=== PATIENT | female | born 1985 | race Caucasian/White ===

== ENCOUNTER 2019-04-09 10:35 | Emergency (ER) | payer MEDICAID ==
[2019-04-09] MEDS ORDERED: FAMOTIDINE INJ/PF 20 MG/2 ML SDV IV ONE (11:04)
[2019-04-09] MEDS ORDERED: ONDANSETRON HCL INJ/PF 4 MG/2 ML SDV IV ONE (11:04)
[2019-04-09] MEDS ORDERED: NORMAL SALINE 1000 ML 1,000 ML IV ONE (11:04)
--- NOTE | 2019-04-09 11:05 | ER Document Report ---
ED Medical Screen (RME) - General Chief Complaint: Vaginal Bleeding Stated Complaint: VOMITING Time Seen by Provider: 04/09/19 10:59 Primary Care Provider: PAUL ZAMUDIO MD [Primary Care Provider] - Follow up as needed TRAVEL OUTSIDE OF THE [place] IN LAST 30 DAYS: No - HPI Notes: 04/09/19 11:05 33-year-old female to the emergency department with complaints of nausea and vomiting for the past 2 weeks that has gotten acutely worse. She states that she vomits somewhere around 3 times every day. She notices that the vomiting and nausea gets worse after she eats. She denies any upper abdominal pain but does admit to some lower abdominal pain. She states that she has had some of this trouble since she started the NuvaRing. She took hernia last NuvaRing out 4 days ago but still her symptoms have persisted. She also states that she has been having vaginal bleeding since March 14. She states that sometimes it is very heavy and sometimes is light. She denies any fevers, chills, chest pain, passing out. She does admit to some lightheadedness and weakness. She also reports a chronic cough for several months now. Sometimes when she is coughing she feels short of breath. She denies any flank pain, burning with urination, vaginal discharge. She is a smoker. She states that she drinks 1-2 bottles of wine a week. She denies any illicit drug use. Performed a medical screening exam on this patient. I have placed initial orders to help augment to her care today. While the main side provider further evaluate and manage patient. On exam patient has a nontender soft abdomen. She has negative McBurney's point, negative Rovsing's, negative Pereira sign, no CVA tenderness bilaterally, and no evidence of peritoneal signs. She has a slight cough. Her chest is clear to auscultation. - Related Data Allergies/Adverse Reactions: No Known Allergies Allergy (Verified 04/09/19 11:02) Physical Exam - Vital signs Vitals: Temp Pulse Resp BP Pulse Ox 98.5 F 102 H 14 112/72 98 04/09/19 10:40 04/09/19 10:40 04/09/19 10:40 04/09/19 10:40 04/09/19 10:40 Course - Vital Signs Vital signs: Temp Pulse Resp BP Pulse Ox 98.5 F 102 H 14 112/72 98 04/09/19 10:40 04/09/19 10:40 04/09/19 10:40 04/09/19 10:40 04/09/19 10:40 Doctor's Discharge - Discharge Referrals: PAUL ZAMUDIO MD [Primary Care Provider] - Follow up as needed
--- NOTE | 2019-04-09 11:36 | RADIOLOGY REPORT (SQ) ---
EXAM DESCRIPTION: CHEST 2 VIEWS COMPLETED DATE/TIME: 04/09/2019 11:28 am REASON FOR STUDY: chronic cough COMPARISON: None. EXAM PARAMETERS: NUMBER OF VIEWS: two views TECHNIQUE: Digital Frontal and Lateral radiographic views of the chest acquired. RADIATION DOSE: NA LIMITATIONS: none FINDINGS: LUNGS AND PLEURA: No opacities, masses or pneumothorax. No pleural effusion. MEDIASTINUM AND HILAR STRUCTURES: No masses or contour abnormalities. HEART AND VASCULAR STRUCTURES: Heart normal size. No evidence for failure. BONES: No acute findings. HARDWARE: None in the chest. OTHER: No other significant finding. IMPRESSION: NO ACUTE RADIOGRAPHIC FINDING IN THE CHEST. TECHNICAL DOCUMENTATION: JOB ID: [id number] [employer]- All Rights Reserved Reading location - IP/workstation name: [email or web address]
[2019-04-09 11:51] LABS: ABSOLUTE EOSINOPHILS # (AUTO) 0.1 10^3/uL (0.0-0.6); ABSOLUTE LYMPHOCYTES (AUTO) 0.9 10^3/uL (0.5-4.7); ABSOLUTE MONOCYTES (AUTO) 0.3 10^3/uL (0.1-1.4); ABSOLUTE NEUT (AUTO) 1.7 10^3/uL (1.7-8.2); APPEARANCE,URINE SLIGHTLY-CLOUDY; BASOPHILS % (AUTO) 1.4 % (0-2); BILIRUBIN,URINE SMALL (NEGATIVE); COLOR,URINE AMBER; EOSINOPHILS % (AUTO) 2.7 % (0-6); GLUCOSE, URINE NEGATIVE (NEGATIVE); HEMATOCRIT 38.8 % (36.0-47.0); HEMOGLOBIN 13.1 g/dL (12.0-15.5); KETONES,URINE NEGATIVE (NEGATIVE); LEUKOCYTE ESTERASE,URINE SMALL (NEGATIVE); LYMPHOCYTES % (AUTO) 28.8 % (13-45); MEAN CORPUSCULAR HEMOGLOBIN 32.5 pg (27.0-33.4); MEAN CORPUSCULAR HGB CONC 33.8 g/dL (32.0-36.0); MEAN CORPUSCULAR VOLUME 96 fl (80-97); MONOCYTES % (AUTO) 8.9 % (3-13); NITRITE,URINE POSITIVE (NEGATIVE); PLATELET COUNT 270 10^3/uL (150-450); PROTEIN,URINE 30 mg/dL (NEGATIVE); RED BLOOD COUNT 4.04 10^6/uL (3.72-5.28); RED CELL DISTRIBUTION WIDTH 12.8 % (11.5-14.0); SEGMENTED NEUTROPHILS % (AUTO) 58.2 % (42-78); TOTAL CELLS COUNTED % (AUTO) 100 %; URINE SPECIFIC GRAVITY 1.023
[2019-04-09 12:26] LABS: ALBUMIN 4.2 g/dL (3.5-5.0); ALKALINE PHOSPHATASE 85 U/L (38-126); ANION GAP 11 (5-19); ASPARTATE AMINO TRANSFERASE 427 U/L (14-36); BILIRUBIN,DIRECT 0.4 mg/dL (0.0-0.4); BILIRUBIN,TOTAL 1.1 mg/dL (0.2-1.3); BLOOD UREA NITROGEN 8 mg/dL (7-20); CALCIUM 9.4 mg/dL (8.4-10.2); CARBON DIOXIDE 27 mmol/L (22-30); CHLORIDE 100 mmol/L (98-107); GLUCOSE 131 mg/dL (75-110); POTASSIUM 4.2 mmol/L (3.6-5.0)
[2019-04-09] MEDS ORDERED: KETOROLAC TROMETHAMINE INJ/PF 30 MG/1 ML SDV IV ONE (12:45)
[2019-04-09] MEDS ORDERED: CEFTRIAXONE 1 GM/D5W RTU 1 GM/50 ML RTUPB IV ONE (12:45)
--- NOTE | 2019-04-09 12:47 | ER Document Report ---
ED GI/ - General Chief Complaint: Vaginal Bleeding Stated Complaint: VOMITING Time Seen by Provider: 04/09/19 10:59 Primary Care Provider: [facility] [Provider Group] - Follow up as needed [facility] [Provider Group] - Follow up as needed PAUL ZAMUDIO MD [NO LOCAL MD] - Follow up as needed Mode of Arrival: Ambulatory Information source: Patient Notes: Patient presents complaining of vaginal bleeding for the past 2 months. Patient states that she was recently started on the new for ring 4 months ago. Patient states that she had persistent bleeding for the past 2 months so she took the NuvaRing out 4 days ago. Patient complains of persistent bleeding since taking the NuvaRing out. Patient also reports a daily vomiting and has vomited 3 episodes today. Patient complains of lower pelvic cramping typical of menstrual cramps that she has had in the past. Patient denies any fever. Patient denies any urinary symptoms, vaginal discharge or concern about STD. TRAVEL OUTSIDE OF THE [place] IN LAST 30 DAYS: No - HPI Patient complains to provider of: Pelvic pain, Vaginal bleeding. No: , Vaginal discharge Onset: Other - 2 months Timing/Duration: Persistent Quality of pain: Cramping Pain Level: 1 Location: Pelvis Vaginal bleeding (Compared to normal period): [place] Menstrual period history: denies: Associated symptoms: Nausea, Vomiting. denies: Dysuria, Fever, Urinary hesitancy, Urinary frequency, Urinary retention, Vaginal discharge Exacerbated by: Denies Relieved by: Denies Similar symptoms previously: No Recently seen / treated by doctor: No - Related Data Allergies/Adverse Reactions: No Known Allergies Allergy (Verified 04/09/19 11:02) Past Medical History - General Information source: Patient - Social History Smoking Status: Current Every Day Smoker Smoking Education Provided: Yes Frequency of alcohol use: Heavy Drug Abuse: None Occupation: None Family History: Reviewed & Not Pertinent Patient has suicidal ideation: No Patient has homicidal ideation: No - Medical History Medical History: Negative Renal/ Medical History: Denies: Hx Peritoneal Dialysis Surgical Hx: Negative Review of Systems - Review of Systems Constitutional: No symptoms reported. denies: Fever, Recent illness EENT: No symptoms reported Cardiovascular: No symptoms reported. denies: Chest pain, Dizziness, Lightheaded Respiratory: No symptoms reported. denies: Cough, Short of breath Gastrointestinal: Abdominal pain, Nausea, Vomiting. denies: Diarrhea, Poor appetite Genitourinary: No symptoms reported. denies: Dysuria, Flank pain Female Genitourinary: Vaginal bleeding. denies: , Vaginal discharge Musculoskeletal: No symptoms reported. denies: Back pain Skin: No symptoms reported Hematologic/Lymphatic: No symptoms reported Neurological/Psychological: No symptoms reported Physical Exam - Vital signs Vitals: Temp Pulse Resp BP Pulse Ox 98.5 F 102 H 14 112/72 98 04/09/19 10:40 04/09/19 10:40 04/09/19 10:40 04/09/19 10:40 04/09/19 10:40 - General General appearance: Appears well, Alert In distress: None - HEENT Head: Normocephalic, Atraumatic Eyes: Normal Conjunctiva: Normal Nasal: Normal Mouth/Lips: Normal Mucous membranes: Normal Neck: Normal, Supple. No: Lymphadenopathy - Respiratory Respiratory status: No respiratory distress Chest status: Nontender Breath sounds: Normal. No: Rales, Rhonchi, Stridor, Wheezing Chest palpation: Normal - Cardiovascular Rhythm: Regular Heart sounds: S1 appreciated, S2 appreciated Murmur: No - Abdominal Inspection: Normal Distension: No distension Bowel sounds: Normal Tenderness: Tender - lower pelvic. No: McBurney's point, Pereira's sign, Guarding Organomegaly: No organomegaly - Genitourinary External exam: Normal Speculum exam: Cervix closed Vaginal bleeding: Mild Bimanuel exam: Normal. No: Cervical motion tender, Adnexal tenderness - Back Back: Normal, Nontender. No: CVA tenderness - Extremities General upper extremity: Normal inspection, Normal ROM General lower extremity: Normal inspection, Normal ROM - Neurological Neuro grossly intact: Yes Cognition: Normal Humberto Coma Scale Eye Opening: Spontaneous Humberto Coma Scale Verbal: Oriented Etters Coma Scale Motor: Obeys Commands Etters Coma Scale Total: 15 - Psychological Associated symptoms: Normal affect, Normal mood - Skin Skin Temperature: Warm Skin Moisture: Dry Skin Color: Normal Course - Re-evaluation Re-evalutation: 04/09/19 16:30 Patient advised of elevated AST. Patient does acknowledge drinking wine about 4 times a week. Patient encouraged to stop drinking wine and does not see a primary doctor to have her liver function test reevaluated. 04/09/19 18:10 Discussed results of patient's ultrasound reports with her. No concern for any biliary obstruction. Patient encouraged to get established with a primary doctor to recheck her liver function test. Patient also with UTI at this time. Abdomen is soft, no guarding. Patient presents with abdominal pain without signs of peritonitis or other life-threatening or serious etiology. Patient appears stable for discharge and has been instructed to return immediately if the symptoms worsen in any way for reevaluation. - Vital Signs Vital signs: Temp Pulse Resp BP Pulse Ox 98.2 F 69 14 113/68 100 04/09/19 18:17 04/09/19 18:17 04/09/19 10:40 04/09/19 18:17 04/09/19 18:17 - Laboratory Result Diagrams: 04/09/19 11:30 04/09/19 11:30 Laboratory results interpreted by me: 04/09/19 04/09/19 04/09/19 11:30 11:30 11:30 WBC 3.0 L Glucose 131 H AST 427 H Urine Protein 30 H Urine Nitrite POSITIVE H Urine Bilirubin SMALL H Urine Urobilinogen 2.0 H Ur Leukocyte Esterase SMALL H 04/09/19 17:54 Labs- Entire Visit 04/09/19 04/09/19 04/09/19 11:30 11:30 11:30 WBC 3.0 L RBC 4.04 Hgb 13.1 Hct 38.8 MCV 96 MCH 32.5 MCHC 33.8 RDW 12.8 Plt Count 270 Lymph % (Auto) 28.8 [place] % (Auto) 8.9 Eos % (Auto) 2.7 Baso % (Auto) 1.4 Absolute Neuts (auto) 1.7 Absolute Lymphs (auto) 0.9 Absolute Monos (auto) 0.3 Absolute Eos (auto) 0.1 Absolute Basos (auto) 0.0 Seg Neutrophils % 58.2 Sodium 138.0 Potassium 4.2 Chloride 100 Carbon Dioxide 27 Anion Gap 11 BUN 8 Creatinine 0.53 Est GFR ( Amer) > 60 Est GFR (MDRD) Non-Af > 60 Glucose 131 H Calcium 9.4 Total Bilirubin 1.1 Direct Bilirubin 0.4 Neonat Total Bilirubin Not Reportable Neonat Direct Bilirubin Not Reportable Neonat Indirect Bili Not Reportable AST 427 H ALT 78 Alkaline Phosphatase 85 Total Protein 7.0 Albumin 4.2 Lipase 82.8 Urine Color CODY Urine Appearance SLIGHTLY-CLOUDY Urine pH 5.0 Ur Specific [place] 1.023 Urine Protein 30 H Urine Glucose (UA) NEGATIVE Urine Ketones NEGATIVE Urine Blood NEGATIVE Urine Nitrite POSITIVE H Urine Bilirubin SMALL H Urine Urobilinogen 2.0 H Ur Leukocyte Esterase SMALL H Urine WBC (Auto) 32 Urine RBC (Auto) 2 Urine Bacteria (Auto) 1+ Squamous Epi Cells Auto 2 Urine Mucus (Auto) MANY Urine Ascorbic Acid NEGATIVE Urine HCG, Qual NEGATIVE Epi Cells (Wet Prep) Bacteria (Wet Prep) Trichomonas (Wet Prep) Vaginal WBC Vaginal RBC Vaginal Yeast Chlamydia DNA (PCR) N.gonorrhoeae DNA (PCR) 04/09/19 04/09/19 15:40 15:40 WBC RBC Hgb Hct MCV MCH MCHC RDW Plt Count Lymph % (Auto) [place] % (Auto) Eos % (Auto) Baso % (Auto) Absolute Neuts (auto) Absolute Lymphs (auto) Absolute Monos (auto) Absolute Eos (auto) Absolute Basos (auto) Seg Neutrophils % Sodium Potassium Chloride Carbon Dioxide Anion Gap BUN Creatinine Est GFR ( Amer) Est GFR (MDRD) Non-Af Glucose Calcium Total Bilirubin Direct Bilirubin Neonat Total Bilirubin Neonat Direct Bilirubin Neonat Indirect Bili AST ALT Alkaline Phosphatase Total Protein Albumin Lipase Urine Color Urine Appearance Urine pH Ur Specific [place] Urine Protein Urine Glucose (UA) Urine Ketones Urine Blood Urine Nitrite Urine Bilirubin Urine Urobilinogen Ur Leukocyte Esterase Urine WBC (Auto) Urine RBC (Auto) Urine Bacteria (Auto) Squamous Epi Cells Auto Urine Mucus (Auto) Urine Ascorbic Acid Urine HCG, Qual Epi Cells (Wet Prep) 3+ EPITHELIALS SEEN Bacteria (Wet Prep) 3+ BACTERIA SEEN Trichomonas (Wet Prep) NO TRICHOMONAS SEEN Vaginal WBC NO WBCS SEEN Vaginal RBC 2+ RBCS SEEN Vaginal Yeast NO YEAST SEEN Chlamydia DNA (PCR) NOT DETECTED N.gonorrhoeae DNA (PCR) NOT DETECTED - Diagnostic Test Radiology reviewed: Reports reviewed Discharge - Discharge Clinical Impression: Abnormal liver function test Nausea & vomiting Qualifiers: Vomiting type: unspecified Vomiting Intractability: non-intractable Qualified Code(s): R11.2 - Nausea with vomiting, unspecified UTI (urinary tract infection) Qualifiers: Urinary tract infection type: site unspecified Hematuria presence: without hematuria Qualified Code(s): N39.0 - Urinary tract infection, site not specified Ovarian cyst Qualifiers: Laterality: left Qualified Code(s): N83.202 - Unspecified ovarian cyst, left side Condition: Stable Disposition: HOME, SELF-CARE Instructions: Antinausea Medication ([facility]), Cephalexin ([facility]), Ovarian Cyst ([facility]), Urinary Tract Infection ([facility]), Vaginal Bleeding ([facility]), Vomiting ([facility]) Additional Instructions: Return immediately for any new or worsening symptoms Followup with your primary care provider, call tomorrow to make a followup appointment Stop drinking alcohol and avoid any heavy Tylenol or acetaminophen use. You should see a primary doctor to have your liver function tests reevaluated as your AST test was elevated today. Prescriptions: Cephalexin Monohydrate [Keflex 500 mg Capsule] 500 mg PO BID 5 Days capsule Naproxen [Naprosyn 250 Nmg Tablet] 1 tab PO BID #14 tablet Promethazine HCl [Phenergan 25 mg Tablet] 25 mg PO Q6H PRN #10 tablet PRN Reason: Forms: Smoking Cessation Education Referrals: PAUL ZAMUDIO MD [NO LOCAL MD] - Follow up as needed [facility] [Provider Group] - Follow up as needed [facility] [Provider Group] - Follow up as needed
[2019-04-09 15:58] LABS: BACTERIA (WET MOUNT) 3+ BACTERIA SEEN; EPITHELIALS (WET MOUNT) 3+ EPITHELIALS SEEN; RBCS (WET MOUNT) 2+ RBCS SEEN; T.VAGINALIS (WET MOUNT) NO TRICHOMONAS SEEN; WBCS (WET MOUNT) NO WBCS SEEN; YEAST (WET MOUNT) NO YEAST SEEN
[2019-04-09 17:24] LABS: CHLAM PCR NOT DETECTED (NOT DETECT)
[2019-04-09] MEDS ORDERED: NICOTINE 21 MG/24 HR PATCH.TD24 TD ONE (17:38)
--- NOTE | 2019-04-09 17:40 | RADIOLOGY REPORT (SQ) ---
EXAM DESCRIPTION: U/S ABDOMEN LIMITED W/O DOP COMPLETED DATE/TIME: 04/09/2019 5:30 pm REASON FOR STUDY: vomiting, abd pain COMPARISON: None. TECHNIQUE: Dynamic and static grayscale images acquired of the abdomen and recorded on PACS. Collino alyssa selected color Doppler and spectral images recorded. LIMITATIONS: None. FINDINGS: PANCREAS: The head of the pancreas is of normal echotexture. The body and tail are subop timally visualized due to overlying bowel gas. LIVER: The liver measures 15.6 cm in length, normal size. No masses. Echotexture normal. LIVER VASCULATURE: Normal directional flow of the main portal vein and hepatic veins. GALLBLADDER: No stones. The gallbladder wall measures 1.4 mm, normal wall thickness. No pericholecys tic fluid. ULTRASOUND-DETECTED CHAVEZ'S SIGN: Negative. INTRAHEPATIC DUCTS AND COMMON DUCT: CBD measures 4.5 mm in diameter, normal. The intrahepatic ducts normal caliber. No filling defects. INFERIOR VENA CAVA: Normal flow. AORTA: No aneurysm. RIGHT KIDNEY: The right kidney measures 10.3 cm in length, normal size. Normal echogenicity. No etelvina id or suspicious masses. No hydronephrosis. No calcifications. PERITONEAL AND RIGHT PLEURAL SPACE: No ascites or effusions. OTHER: No other significant findings. IMPRESSION: 1. The body and tail of the pancreas are suboptimally visualized due to overlying bowel gas. 2. Examination is otherwise unremarkable sonographically. TECHNICAL DOCUMENTATION: JOB ID: [id number] [employer]- All Rights Reserved Reading location - IP/workstation name: [email or web address]
--- NOTE | 2019-04-09 17:42 | RADIOLOGY REPORT (SQ) ---
EXAM DESCRIPTION: U/S NON OB PEL TV W/DOPPLER COMPLETED DATE/TIME: 04/09/2019 5:30 pm REASON FOR STUDY: pelvic pain COMPARISON: None. TECHNIQUE: Dynamic and static grayscale images acquired of the pelvis via transvaginal approach and recorded on PACS. Additional selected color Doppler and spectral images recorded. LIMITATIONS: None. FINDINGS: UTERUS: Contour normal. No mass. ENDOMETRIAL STRIPE: No focal or generalized thickening. No masses. CERVIX: The cervix measures 2.3 cm in length. No nabothian cysts. RIGHT OVARY AND DOPPLER: Normal size. No worrisome masses. Normal arterial vascular flow without evid ence for torsion. LEFT OVARY AND DOPPLER: Normal size. A 1.3 x 1.4 x 1.2 cm paraovarian cyst. Normal arterial vascula r flow without evidence for torsion. FREE FLUID: None noted. OTHER: No other significant finding. MEASUREMENTS: UTERUS: 8.3 x 5.3 x 4.3 cm ENDOMETRIAL STRIPE: 2.5 mm RIGHT OVARY: 1.6 x 2.3 x 1.9 cm LEFT OVARY: 2.4 x 1.6 x 1.9 cm IMPRESSION: 1. Left paraovarian cyst is visualized. A follow-up examination in 6 to 12 weeks is rabago ggested for re- evaluation. TECHNICAL DOCUMENTATION: JOB ID: [id number] [employer]- All Rights Reserved Rev-12/30 Reading location - IP/workstation name: [email or web address]
[2019-04-09 18:24] VITALS: BP 113/68
== END 2019-04-09 18:23 | disposition home or self-care (01) ==
LOC: ER 10:35
DX: N83.202 Unspecified ovarian cyst, left side (principal); N39.0 Urinary tract infection, site not specified; R11.2 Nausea with vomiting, unspecified; R94.5 Abnormal results of liver function studies; N93.9 Abnormal uterine and vaginal bleeding, unspecified; R10.2 Pelvic and perineal pain; F17.200 Nicotine dependence, unspecified, uncomplicated
CPT/HCPCS: 36415; 87210; 83690; 85025; 81025; 80053; 81001; 87491; 87591; 71046; 76705; 76830; 93976; J1885; J2405; J7030; J3490; S0028; J0696; 96361; 96365; 96375; 99284

== ENCOUNTER → 2020-06-17 | Outpatient (CLI) | payer MEDICAID ==
--- NOTE | 2020-06-17 08:36 | WOMENS IMAGING REPORT ---
EXAM DESCRIPTION: U/S ABDOMEN LIMITED IMAGES COMPLETED DATE/TIME: 06/17/2020 7:56 am REASON FOR STUDY: R74.01 ELEVATION OF LEVELS OF LIVER TRANSAMINASE LEVELS R74.01 ELEVATION OF LEVEL S OF LIVER TRANSAMINASE LEVELS COMPARISON: 04/09/2019. TECHNIQUE: Dynamic and static grayscale images acquired of the abdomen and recorded on PACS. Additio nal selected color Doppler and spectral images recorded. Note: Study does not meet criteria for a complete doppler/duplex scan LIMITATIONS: None. FINDINGS: PANCREAS: No masses. Visualized pancreatic duct normal caliber. LIVER: Echotexture is coarse with increased echogenicity consistent with fatty infiltration. LIVER VASCULATURE: Normal directional flow of the main portal vein and hepatic veins. GALLBLADDER: No stones. Normal wall thickness. No pericholecystic fluid. ULTRASOUND-DETECTED CHAVEZ'S SIGN: Negative. INTRAHEPATIC DUCTS AND COMMON DUCT: CBD and intrahepatic ducts normal caliber. No filling defects. INFERIOR VENA CAVA: Normal flow. AORTA: No aneurysm. RIGHT KIDNEY: Normal size. Normal echogenicity. No solid or suspicious masses. No hydronephrosis. No calcifications. PERITONEAL AND PLEURAL SPACES: No ascites or effusions. OTHER: No other significant finding. IMPRESSION: FATTY LIVER. NO OTHER SIGNIFICANT FINDING. TECHNICAL DOCUMENTATION: JOB ID: [id number] [employer]- All Rights Reserved Reading location - IP/workstation name: [email or web address]
== END ==
LOC: WI 07:14
PROVIDERS: ATTEND Nurse Practitioner Family
DX: R74.01 Elevation of levels of liver transaminase levels (principal); K76.0 Fatty (change of) liver, not elsewhere classified
CPT/HCPCS: 76705